=== PATIENT | male | born 1990 | race Caucasian/White ===

== ENCOUNTER 2022-08-05 13:09 | Emergency (ER) | payer OTHER ==
[~2022-08-05] VITALS: Ht 182.9 cm; Wt 99.8 kg
[2022-08-05 13:10] VITALS: BP_SYST 124
--- NOTE | 2022-08-05 13:10 | NUR ---
BROUGHT BACK TO BED #1 AND TRIAGED. REPORT GIVEN TO MILY
--- NOTE | 2022-08-05 13:11 | NUR ---
RECEIVED PT FROM JD LAWRENCE. ASSUMED CARE. PT BIBS AND STATES 10 DAYS AGO LANDED ON A BASKETBALL TO CHEST. PAIN TO MID CHEST AND LEFT SIDE. PT C/O INCREASED PAIN WHEN COUGHING. PT IS AAOX4. ON R/A. NORMAL S1S2. DENIES N/V/D/C. DISTAL PULSES NORMAL, SKIN CDI, NO EDEMA. SIDERAILS UP X2.
--- NOTE | 2022-08-05 13:13 | NUR ---
DR. FORD AT BEDSIDE TO ASSESS PT.
--- NOTE | 2022-08-05 13:36 | NUR ---
PT TAKEN OF MONITOR AND AMBULATED TO CXR.
[2022-08-05] MEDS ORDERED: NAPR-1172 PO (14:00)
--- NOTE | 2022-08-05 14:00 | NUR ---
DR. FORD AT BEDSIDE TO DISCUSS POC.
[2022-08-05 14:05] VITALS: BP_SYST 124
--- NOTE | 2022-08-05 14:33 | NUR ---
Patient given written and verbal discharge instructions and verbalizes understanding. ER MD discussed with patient the results and treatment provided. Patient in stable condition. ID arm band removed. IV catheter removed intact and dressing applied, no active bleeding. Rx of NAPROSYN given. Patient educated on pain management and to follow up with PMD. Pain Scale 2/10. Opportunity for questions provided and answered. Medication side effect fact sheet provided.
== END 2022-08-05 14:33 | disposition home or self-care (01) ==
LOC: SED 13:09
DX: S20.211A Contusion of right front wall of thorax, initial encounter (principal); Z79.899 Other long term (current) drug therapy; W21.05XA Struck by basketball, initial encounter; Y93.67 Activity, basketball; Y92.89 Other specified places as the place of occurrence of the external cause; Y99.8 Other external cause status
CPT/HCPCS: 71120-TC; 99283

== ENCOUNTER 2023-02-17 11:33 | Emergency (ER) | payer OTHER ==
[~2023-02-17] VITALS: Ht 182.9 cm; Wt 102.1 kg
[~2023-02-17 11:33] MED LIST: NAPR-1172 PO
[2023-02-17 12:02] VITALS: BP_SYST 137; PULSE 87; RESP 18; TEMP 97.4; O2SAT 97
[2023-02-17 14:03] VITALS: BP_SYST 134; PULSE 70; RESP 16; TEMP 97.5; O2SAT 100
[2023-02-17] MEDS ORDERED: NAPR-690 PO (14:15)
== END 2023-02-17 14:20 | disposition home or self-care (01) ==
LOC: SED 11:33
DX: S86.812A Strain of other muscle(s) and tendon(s) at lower leg level, left leg, initial encounter (principal); Z79.899 Other long term (current) drug therapy; W21.05XA Struck by basketball, initial encounter; Y93.67 Activity, basketball; Y92.89 Other specified places as the place of occurrence of the external cause; Y99.8 Other external cause status
CPT/HCPCS: 73700-TC; 76376; 99284